=== PATIENT | female | born 1990 | race Caucasian/White ===

== ENCOUNTER 2020-10-31 06:06 | Inpatient (IN) | payer BC ==
[2020-10-31] MEDS ORDERED: LIDOCAINE 0.5% (PF) 5 MG/ML (50 ML SDV) SQ PRN (06:20)
[2020-10-31] MEDS ORDERED: OXYTOCIN 10 UNIT/ML 1 ML VIAL IM PRN (06:20)
[2020-10-31] MEDS ORDERED: TERBUTALINE 1 MG/ML VIAL SQ PRN (06:20)
[2020-10-31] MEDS ORDERED: CARBOPROST TROMETHAMINE 250 MCG/ML 1 ML AMP IM PRN (06:20)
[2020-10-31] MEDS ORDERED: METHYLERGONOVINE 0.2 MG/ML 1 ML AMP IM PRN (06:20)
[2020-10-31] MEDS ORDERED: OXYTOCIN 30 UNITS/500 ML NS 30 UNIT in SALINE 1 500ML.BAG IV SCH ×2 (06:30→22:28)
[2020-10-31] MEDS: LACTATED RINGERS 1,000 ML IV SCH ×4 (06:54→19:56)
[2020-10-31 07:11] LABS: Basophils % (A) 0 %; Eosinophils # (A) 0.1 k/uL (0-0.7); Eosinophils % (A) 1 %; HCT 37.9 % (34.0-46.0); Lymphocytes % (A) 25 %; MCH 29.3 pg (25.0-35.0); MCHC 31.6 g/dL (31.0-37.0); MCV 92.7 fL (80.0-100.0); Mean Platelet Volume 7.9; Monocytes # (A) 0.4 k/uL (0-1.0); Monocytes % (A) 5 %; Neutrophils # (A) 5.4 k/uL (1.3-7.7); Neutrophils % (A) 67 %; Platelet Count 261 k/uL (150-450); RBC 4.08 m/uL (3.80-5.40); RDW 13.1 % (11.5-15.5)
[2020-10-31] MEDS ORDERED: BUTORPHANOL 1 MG/ML 1 ML VIAL IV PRN (08:33)
[2020-10-31] MEDS: PRENATAL VIT-IRON-FOLIC ACID 1 EACH CAP PO SCH (10:33)
[2020-10-31] MEDS ORDERED: ROPIVACAINE 5MG/ML 20ML VIAL ONE (13:27)
[2020-10-31] MEDS ORDERED: fentaNYL (PF) 50 MCG/ML 5 ML AMP ONE (13:27)
[2020-10-31] MEDS ORDERED: SODIUM CHLORIDE 0.9% 100 ML BAG ONE (13:27)
[2020-10-31] MEDS ORDERED: CITRIC ACID-SODIUM CITRATE 15 ML CUP PO ONE (20:38)
[2020-10-31] MEDS ORDERED: ONDANSETRON 4 MG/2 ML VIAL ONE (21:21)
[2020-10-31] MEDS ORDERED: MORPHINE SULFATE (PF) 0.3 MG/0.3 ML SYR ONE (21:21)
--- NOTE | 2020-10-31 22:17 | P.HPOB ---
History of Present Illness H&P Date: 10/31/20 Chief Complaint: IUP at 39 and 6/7 weeks This is a 30-year-old 1 para 0 at 39-6/7 weeks that presents to labor and delivery for elective induction of labor. Patient has noted irregular contractions throughout the last few weeks, she denies vaginal bleeding or loss of fluid prior to today's admission. Patient has been receiving routine care which has been essentially uncomplicated. Patient is known Rh- and did receive program with her gestational diabetes screen at 28 weeks 08/09/2020. Patient does note good movement. On blood work shows blood type of O-, rubella status immune,B surface engine negative, HIV negative, group beta strep was negative. Review of Systems Constitutional: Denies chills, Denies fatigue, Denies fever Ears, nose, mouth and throat: Denies headache Cardiovascular: Reports leg edema Respiratory: Denies dyspnea Gastrointestinal: Denies constipation, Denies diarrhea, Denies nausea, Denies vomiting Genitourinary: Reports Past Medical History Past Medical History: No Reported History History of Any Multi-Drug Resistant Organisms: None Reported Past Surgical History: No Surgical Hx Reported Past Anesthesia/Blood Transfusion Reactions: No Reported Reaction Past Psychological History: No Psychological Hx Reported Smoking Status: Never smoker Past Alcohol Use History: None Reported Past Drug Use History: None Reported - Past Family History Father Family Medical History: No Reported History Medications and Allergies Home Medications Medication Instructions Recorded Confirmed Type Pnv,Calcium 72/Iron/Folic Acid 1 each PO DAILY 10/31/20 10/31/20 History [ Plus Tablet] Allergies Allergy/AdvReac Type Severity Reaction Status Date / Time No Known Allergies Allergy Verified 10/31/20 06:19 Exam Osteopathic Statement: *. No significant issues noted on an osteopathic structural exam other than those noted in the History and Physical/Consult. 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 Results Result Diagrams: 10/31/20 06:30 Assessment and Plan (1) Term Current Visit: Yes Status: Acute Code(s): Z34.90 - ENCNTR FOR SUPRVSN OF NORMAL , UNSP, UNSP TRIMESTER SNOMED Code(s): 96364278 (2) Thick meconium stained amniotic fluid Current Visit: Yes Status: Acute Code(s): P96.83 - MECONIUM STAINING SNOMED Code(s): 944945696 Plan: This 30-year-old at 39 and 6 is admitted to labor and delivery for scheduled induction of labor. Patient is noted to have thick meconium-stained fluid. Pitocin induction of labor was begun this morning per hospital protocol. Options for analgesia during are discussed including epidural and Stadol. Patient will decide at the time. We will monitor heart tones closely, anesthesia/pediatrics is notified regarding meconium-stained fluid.
--- NOTE | 2020-10-31 22:17 | P.OP ---
Date of Procedure: 10/31/20 Preoperative Diagnosis: IUP at 39 and 6/7 weeks, arrest of first stage of labor, meconium-stained fluid Postoperative Diagnosis: Same, OT presentation Procedure(s) Performed: Primary low transverse section Anesthesia: epidural Surgeon: Claudia Gamino Commercial Underwriter #1: Yana Philippe Estimated Blood Loss (ml): 396 IV fluids (ml): 1,000 Urine output (ml): 200 Pathology: other (Placenta) Condition: stable Disposition: observation Indications for Procedure: This is a 30-year-old 1 para 0 at 39-6/7 weeks that presented to labor and delivery today for induction of labor. Patient had noted meconium-stained fluid upon rupture of membranes this morning. Patient was found to be 3 cm on rupture and has made very slow progress and is noted to be 5 cm currently at 1830. Patient was noted to be 5 cm since 14:30 this afternoon. Patient was given the option of proceeding forward versus proceeding with primary , she elected primary . Operative Findings: Normal uterus tubes and ovaries were appreciated, viable female infant delivered at 2147, weight of 7 lbs. 1 oz. and Apgars of 8 and 9 at one and 5 minutes respectively. Infant was noted in the occiput transverse presentation maternal left Description of Procedure: Patient was taken back to the operating suite where epidural anesthesia was found to be adequate by the anesthesia department. She was then prepped and draped in normal sterile fashion in the dorsal supine position. A Pfannenstiel skin incision was made the scalpel and carried through to the underlying layer of fascia. The fascia was then incised in the midline and the incision was extended laterally. The superior aspect of the fascial incision was then grasped barbra clamps, elevated and underlying rectus muscle was dissected off sharply. Attention was then turned the inferior aspect of the fascial incision which was grasped barbra clamps, elevated and underlying rectus muscles dissected off sharply. The rectus muscles were in the midline the peritoneum was identified and entered. The bladder blade was then inserted into the pelvis. The vesicouterine peritoneum was identified and the bladder flap was then created the bladder blade was then reinserted. Hysterotomy incision was made with scalpel and extended bluntly. The head was encountered in an occiput transverse presentation off to the maternal left. The infant was delivered in the usual fashion. The umbo cord was doubly clamped and cut and handed off to awaiting RN. A spontaneous cry was noted. The placenta was then delivered manually intact with three-vessel cord being noted. Cord blood was taken prior to delivery of the placenta. The uterus was exteriorized and cleared of all clots and debris. The uterine incision was closed with 0 Vicryl in a running locked fashion and imbricating suture was then performed. Hemostasis was appreciated. The pelvis was then copiously irrigated. The uter us was then returned to the abdomen the hysterotomy incision was inspected and found to be hemostatic. The gutters were cleared of all clots and debris. The peritoneum was then loosely reapproximated. The fascia was then closed with 0 Vicryl in a running fashion from one lateral edge the other. The subcutaneous tissue was closed with 3-0 Vicryl in a running fashion. The skin was then closed with 4-0 Vicryl in a subcuticular fashion. Steri-Strips and sterile dressings were applied. All counts were noted be correct 2. Patient tolerated delivery well and is resting comfortably.
[2020-10-31] MEDS ORDERED: diphenhydrAMINE 50 MG CAP PO PRN (22:28)
[2020-10-31] MEDS ORDERED: ZOLPIDEM 5 MG TAB PO PRN (22:28)
[2020-10-31] MEDS ORDERED: diphenhydrAMINE 50 MG/ML 1 ML VIAL IVP PRN ×2 (22:28)
[2020-10-31] MEDS ORDERED: METOCLOPRAMIDE 5 MG/ML 2 ML VIAL IVP PRN (22:28)
[2020-10-31] MEDS ORDERED: ONDANSETRON 4 MG/2 ML VIAL IVP PRN (22:28)
[2020-10-31] MEDS ORDERED: NALOXONE 0.4 MG/ML 1 ML VIAL IV PRN ×2 (22:28→22:44)
[2020-10-31] MEDS ORDERED: SIMETHICONE 80 MG CHEWABLE PO PRN (22:28)
[2020-10-31] MEDS ORDERED: MORPHINE SULFATE 2 MG/ML SYRINGE IVP PRN (22:44)
[2020-10-31] MEDS: ACETAMINOPHEN IV (For NPO) 1,000 MG in EMPTY BAG 1 BAG IVPB SCH (23:15)
[2020-11-01] MEDS ORDERED: Rhogam IMMUNE GLOBULIN 1,500 UNIT/1 ML IM ONE (04:33)
[2020-11-01] MEDS: IBUPROFEN IV 800 MG in SODIUM CHLORIDE 0.9% 250 ML IV SCH ×4 (05:37→21:17)
[2020-11-01 07:12] LABS: Basophils % (A) 0 %; Eosinophils # (A) 0.1 k/uL (0-0.7); Eosinophils % (A) 0 %; HCT 37.2 % (34.0-46.0); HGB 12.1 gm/dL (11.4-16.0); Lymphocytes # (A) 2.2 k/uL (1.0-4.8); Lymphocytes % (A) 16 %; MCH 29.9 pg (25.0-35.0); MCHC 32.5 g/dL (31.0-37.0); MCV 92.2 fL (80.0-100.0); Monocytes # (A) 0.7 k/uL (0-1.0); Monocytes % (A) 5 %; Neutrophils # (A) 10.5 k/uL (1.3-7.7); Neutrophils % (A) 78 %; Platelet Count 209 k/uL (150-450); RBC 4.04 m/uL (3.80-5.40); RDW 13.2 % (11.5-15.5); WBC 13.5 k/uL (3.8-10.6)
--- NOTE | 2020-11-01 08:39 | P.PN ---
Progress Note - Text Date: 11/01/2020 Time: 706 The patient is status post section Vital signs stable VAS: 0-10 Patient has no complaints of pain. The patient incurred some minimal itching yesterday, this itching is now subsiding. Pain meds to be managed by service.
--- NOTE | 2020-11-01 08:39 | P.PNOBGPC ---
Subjective - Subjective Principal diagnosis: POD 1 LTCS arrest of first stage of labor Interval history: Patient did well overnight. She is ambulating without difficulty, awaiting spontaneous void. She is tolerating clear liquids without nausea or vomiting. She is breast feeding with some difficulty. Patient reports: Reports appetite normal, Reports voiding normally, Reports pain well controlled, Reports ambulating normally : doing well, nursing well Objective - Vital Signs Latest vital signs: Vital Signs Temp Pulse Resp BP Pulse Ox 11/01/20 07:00 16 100 11/01/20 05:00 16 98 11/01/20 04:00 98.4 F 65 16 109/65 98 11/01/20 03:44 97 11/01/20 03:00 16 11/01/20 01:44 16 11/01/20 00:30 98.4 F 68 16 113/56 97 11/01/20 00:00 98.4 F 71 16 110/57 96 10/31/20 23:44 16 96 10/31/20 23:30 99.3 F 74 16 106/61 96 10/31/20 23:15 99.3 F 64 16 109/73 97 10/31/20 23:00 76 16 116/63 97 10/31/20 22:45 78 16 113/80 96 10/31/20 22:44 98.4 F 72 16 113/80 96 10/31/20 22:30 98.4 F 67 16 110/61 98 Intake and Output 10/31/20 11/01/20 11/01/20 22:59 06:59 14:59 Output Total 4500 Balance -4500 Output: Urine 4500 Uretheral (Hernadez) 500 Other: Voiding Method Indwelling Catheter Indwelling Catheter # Voids 4 - Exam Extremities: Present: edema Abdomen: Present: normal appearance, soft Incision: Present: normal, dry Uterus: Present: normal, firm - Labs Labs: Abnormal Lab Results - Last 24 Hours (Table) 11/01/20 Range/Units 06:50 WBC 13.5 H (3.8-10.6) k/uL Neutrophils # 10.5 H (1.3-7.7) k/uL Assessment and Plan (1) Term Current Visit: Yes Status: Acute Code(s): Z34.90 - ENCNTR FOR SUPRVSN OF NORMAL , UNSP, UNSP TRIMESTER SNOMED Code(s): 30472877 (2) Thick meconium stained amniotic fluid Current Visit: Yes Status: Acute Code(s): P96.83 - MECONIUM STAINING SNOMED Code(s): 881056643 (3) Arrest of descent, delivered, current hospitalization Current Visit: Yes Status: Acute Code(s): O62.1 - SECONDARY UTERINE INERTIA SNOMED Code(s): 36484155 (4) Arrest of dilation, delivered, current hospitalization Current Visit: Yes Status: Acute Code(s): O62.1 - SECONDARY UTERINE INERTIA SNOMED Code(s): 55133518 (5) S/P section Current Visit: Yes Status: Acute Code(s): Z98.891 - HISTORY OF UTERINE SCAR FROM PREVIOUS SURGERY SNOMED Code(s): 692627520 Plan: Patient is doing well postoperatively. Awaiting spontaneous void, we'll advance diet to regular. Encouraged ambulation. Continue routine postoperative care.
[2020-11-01] MEDS: ACETAMINOPHEN TAB 500 MG TAB PO SCH ×3 (09:10→16:29)
[2020-11-01] MEDS: LACTATED RINGERS 1,000 ML IV SCH ×3 (09:10→18:26)
[2020-11-01] MEDS: ACETAMINOPHEN IV (For NPO) 1,000 MG in EMPTY BAG 1 BAG IVPB SCH (09:11)
[2020-11-01] MEDS: IBUPROFEN 600 MG TAB PO SCH ×4 (09:11→20:15)
[2020-11-01] MEDS: SENNOSIDES-DOCUSATE SODIUM 1 EACH TAB PO SCH ×2 (09:12→20:14)
[2020-11-01] MEDS: PRENATAL VIT-IRON-FOLIC ACID 1 EACH CAP PO SCH (09:13)
[2020-11-01] MEDS: diphenhydrAMINE 25 MG CAP PO PRN ×2 (10:42→16:29)
[2020-11-02] MEDS: ACETAMINOPHEN TAB 500 MG TAB PO SCH ×2 (00:23→06:03)
[2020-11-02] MEDS: IBUPROFEN 600 MG TAB PO SCH ×2 (03:27→10:03)
--- NOTE | 2020-11-02 09:01 | P.DS ---
Providers Date of admission: 10/31/20 06:06 Expected date of discharge: 11/02/20 Attending physician: Claudia Gamino Primary care physician: Stated None - Discharge Diagnosis(es) (1) Term Current Visit: Yes Status: Acute (2) Thick meconium stained amniotic fluid Current Visit: Yes Status: Acute (3) Arrest of descent, delivered, current hospitalization Current Visit: Yes Status: Acute (4) Arrest of dilation, delivered, current hospitalization Current Visit: Yes Status: Acute (5) S/P section Current Visit: Yes Status: Acute Hospital Course: This is a 30-year-old 1 para 0 that presented at 39-6/7 weeks for induction of labor. Patient was admitted to labor and delivery and rupture of membranes revealed meconium-stained fluid. Patient made very minimal progress throughout the day only progressing 2 cm throughout 12 hours. Patient was counseled on continuation of labor versus primary for arrest of descent and dilation. Patient elected primary . Patient underwent primary low transverse section without difficulty. Patient delivered a viable female infant at 2147 on 10/31, weight of 7 lbs. 1 oz. with Apgars of 8 and 9 at one and 5 minutes respectively. Infant was noted to be in the occiput transverse presentation to the maternal left. No descent was noted during the labor process. For complete details on the please see the operative report. Patient's postoperative course has been uneventful. On this postoperative day #2 she is a billing and voiding without difficulty. She is tolerating a regular diet without nausea or vomiting. She states her pain is well-controlled with oral ibuprofen/Tylenol. She does desire discharge home. Patient Condition at Discharge: Good Plan - Discharge Summary New Discharge Prescriptions: No Action Pnv,Calcium 72/Iron/Folic Acid [ Plus Tablet] 1 each PO DAILY Discharge Medication List Pnv,Calcium 72/Iron/Folic Acid [ Plus Tablet] 1 each PO DAILY 10/31/20 [History] Follow up Appointment(s)/Referral(s): Claudia Gamino DO [Doctor of Osteopathic Medicine] - 2 Weeks Patient Instructions/Handouts: (GEN), (DC) Discharge Disposition: HOME SELF-CARE
[2020-11-02 09:02] VITALS: BP 102/66; PULSE 73; RESP 16; TEMP 97.9
[2020-11-02] MEDS: SENNOSIDES-DOCUSATE SODIUM 1 EACH TAB PO SCH (10:02)
[2020-11-02] MEDS: PRENATAL VIT-IRON-FOLIC ACID 1 EACH CAP PO SCH (10:03)
== END 2020-11-02 11:23 | disposition home or self-care (01) | DRG 788 ==
LOC: 4FBP 06:06
PROVIDERS: ADMIT Obstetrics & Gynecology Obstetrics; ATTEND Obstetrics & Gynecology Obstetrics
PROC: 10D00Z1 Extraction of Products of Conception, Low, Open Approach (ICD-10-PCS; principal; 2020-10-31 21:17)
DX: O62.0 Primary inadequate contractions (principal); O32.2XX0 Maternal care for transverse and oblique lie, not applicable or unspecified; O62.1 Secondary uterine inertia; O77.0 Labor and delivery complicated by meconium in amniotic fluid; Z37.0 Single live birth; Z3A.39 39 weeks gestation of pregnancy; Z86.32 Personal history of gestational diabetes
CPT/HCPCS: 85025; 85461; 86850; 86900; 86901; 88307

== ENCOUNTER → 2021-09-25 | Outpatient (CLI) | payer BC ==
--- NOTE | 2021-09-25 15:20 | US ---
EXAMINATION TYPE: Transabdominal DATE OF EXAM: 09/25/2021 3:10 PM COMPARISON: NONE CLINICAL HISTORY: Z36.87 uncertain LMP. Uncertain LMP. EXAM PERFORMED: Transabdominal (TA) EXAM MEASUREMENTS: GESTATIONAL AGE / DATING Physician Established: Not yet established Dates by LMP: (8 weeks/2 days) EDC: 05/05/2022 Dates by First Scan: No previous this is first scan Dates by Current Scan for: (6 weeks/6 days) EDC: 05/15/2022 MATERNAL ANATOMY Uterus: 8.1 x 5.6 x 4.5 cm Right Ovary: 3.1 x 1.8 x 1.8 cm Left Ovary: 3.0 x 1.9 x1.3 cm Post CDS / Adnexa: no free fluid Presence of free fluid: no Presence of corpus luteal cyst: right ovary = 1.3 x 1.2 x 1.3 cm Presence of subchorionic bleed: Right fundal uterus= 1.6 x 1.4 x 0.9 cm GESTATION / SURVEY CRL: 0.8 cm (6 weeks/6 days) MSD: seen, not measured Yolk Sac (normal less than 6mm): 2.2 mm Heart Rate: 127 bpm Rhythm: Normal IUP: Viable IUP Date of LMP: 07/29/2021, Beta HcG (if available): Not available at this time IMPRESSION: Single viable intrauterine . Subchorionic hemorrhage as noted above.
== END | disposition home or self-care (01) ==
LOC: RADUSWWP 14:46
PROVIDERS: ATTEND Obstetrics & Gynecology Obstetrics
DX: Z36.87 Encounter for antenatal screening for uncertain dates (principal)
CPT/HCPCS: 76801

== ENCOUNTER → 2022-02-20 | Outpatient (CLI) | payer BC ==
[2022-02-20 22:53] LABS: HCT 34.8 % (37.2-46.3); HGB 11.2 g/dL (12.0-15.0); MCH 30.8 pg (27.0-32.0); MCHC 32.2 g/dL (32.0-37.0); MCV 95.6 fL (80.0-97.0); Mean Platelet Volume 10.4 fL (9.5-12.2); NRBC Per 100 WBC 0 /100 WBCS (0.0-0.0); Platelet Count 241 X 10*3/uL (140-440); RBC 3.64 X 10*6/uL (4.10-5.20); RDW 12.1 % (11.5-14.5); WBC 6.08 X 10*3/uL (4.50-10.00)
== END | disposition home or self-care (01) ==
LOC: LABWHC1 15:18
PROVIDERS: ATTEND Obstetrics & Gynecology Obstetrics
DX: Z36.9 Encounter for antenatal screening, unspecified (principal)
CPT/HCPCS: 36415; 82950; 85027; 86850

== ENCOUNTER 2022-05-16 13:36 | Inpatient (IN) | payer BC, OTHER ==
[2022-05-16] MEDS ORDERED: LIDOCAINE 0.5% (PF) 5 MG/ML (50 ML SDV) SQ PRN (13:40)
[2022-05-16] MEDS ORDERED: TERBUTALINE 1 MG/ML VIAL SQ PRN (13:40)
[2022-05-16] MEDS: LACTATED RINGERS 1,000 ML IV SCH ×3 (14:03→19:38)
[2022-05-16 14:04] LABS: Basophils % (A) 0 %; Eosinophils # (A) 0.1 k/uL (0-0.7); Eosinophils % (A) 1 %; HCT 38.3 % (34.0-46.0); Lymphocytes # (A) 1.9 k/uL (1.0-4.8); Lymphocytes % (A) 17 %; MCH 30.8 pg (25.0-35.0); MCHC 33.9 g/dL (31.0-37.0); MCV 90.8 fL (80.0-100.0); Mean Platelet Volume 8.5; Monocytes # (A) 0.6 k/uL (0-1.0); Monocytes % (A) 5 %; Neutrophils # (A) 8.4 k/uL (1.3-7.7); Neutrophils % (A) 75 %; Platelet Count 267 k/uL (150-450); RBC 4.21 m/uL (3.80-5.40); RDW 12.5 % (11.5-15.5); WBC 11.1 k/uL (3.8-10.6)
[2022-05-16 14:07] VITALS: RESP 16
[2022-05-16] MEDS ORDERED: OXYTOCIN 30 UNITS/500 ML NS 30 UNIT in SALINE 1 500ML.BAG IV SCH ×2 (15:15→21:00)
[2022-05-16] MEDS ORDERED: CITRIC ACID-SODIUM CITRATE 15 ML CUP PO ONE (19:27)
[2022-05-16] MEDS ORDERED: ONDANSETRON 4 MG/2 ML VIAL ONE (19:56)
[2022-05-16] MEDS ORDERED: ePHEDrine 50 MG/ML 1 ML VIAL ONE (19:56)
[2022-05-16] MEDS ORDERED: OXYTOCIN 30 UNITS/500 ML NS BAG IV ONE (19:56)
[2022-05-16] MEDS ORDERED: fentaNYL (PF) 50 MCG/ML 2 ML AMP ONE (19:56)
--- NOTE | 2022-05-16 20:48 | P.OP ---
Date of Procedure: 05/16/22 Preoperative Diagnosis: IUP at 40-1/7 weeks, arrest of first stage of labor, history of 1 failed trial of labor after Postoperative Diagnosis: Same Procedure(s) Performed: Repeat section Anesthesia: epidural Surgeon: Claudia Gamino Silo Erector #1: Shelly Garcia Estimated Blood Loss (ml): 418 IV fluids (ml): 1,000 Urine output (ml): 300 Pathology: other (Placenta) Condition: stable Disposition: observation Indications for Procedure: 31-year-old at 40 1/7 weeks that presented to labor and delivery last evening and this morning with complaints of regular painful contractions. Patient has a history of 1 secondary to arrest of first stage of labor. Patient withstood trial of labor after . Patient noted contractions since Thursday this week. Patient noted the contractions to be irregular and then getting closer together last evening to 6 minutes. Patient made no cervical change after monitoring. Patient this morning continued to have contractions and was uncomfortable. Patient presented was noted to be 4 cm. Amniotomy was performed. Meconium-stained fluid was appreciated. Patient made minimal twisting frame changer the next 1-2 hours therefore Pitocin augmentation of labor was begun. Infant was noted to be high in the pelvis and no descent was appreciated during admission. Patient had a similar experience with her last delivery. Discussion was had with the patient and her family regarding arrest of first stage of labor and need for repeat section. After discussion patient consented to repeat section. Operative Findings: Normal uterus tubes and ovaries were appreciated. Viable female infant delivered at 2016, weight of 7 lbs. 5 oz., Apgars of 9 and 9 at one and 5 minutes respectively. Description of Procedure: Patient was taken back to the operating suite where epidural anesthesia was found be adequate. She was prepped and draped in the normal sterile fashion in the dorsal supine position. A Hernadez catheter had been placed under sterile technique prior to this. A Pfannenstiel skin incision was made the scalpel. The prior incision was noted to be thickened therefore it was excised sharply. The incision was then carried through the underlying layer of fascia. The fascia was then incised in the midline and extended laterally. The superior aspect of the fascial incision was then grasped barbra clamps, elevated and underlying rectus muscles dissected off sharply. The inferior aspect of the fascial incision was then grasped barbra clamps, elevated and underlying rectus muscles dissected off sharply. The rectus muscles were in the midline the peritoneum was identified and entered. This incision was then extended superiorly and inferiorly with good visualization the bladder. The bladder blade was then inserted into the pelvis. The vesicouterine peritoneum was identified and a bladder flap was created using sharp and blunt dissection. Hysterotomy incision was made with the scalpel meconium-stained fluid was appreciated. The infant was noted in vertex presentation and delivered in the usual fashion a double nuchal cord was appreciated. The umbilical cord was doubly clamped and cut. The was handed off to waiting RN. A spontaneous cry at was noted. The placenta was delivered manually and the uterus was exteriorized and cleared of all clots and debris. Uterine incision was closed with 0 Vicryl in a running locked fashion a second imbricating suture was performed. Hemostasis was noted. The pelvis was then copiously irrigated. The uterus was returned to the abdomen. The gutters were cleared of all clots and debris. The hysterotomy incision was inspected hemostasis was appreciated. The peritoneum was then loosely reapproximated. The rectus muscles were inspected and any points of bleeding were made hemostatic with the Bovie. The fascia was then closed with 0 Vicryl in a running fashion from one lateral edge the midline and the other lateral edge the midline. The subcutaneous tissue was irrigated found to be hemostatic and closed with 3-0 Vicryl in a running fashion. The sk in was then closed with 4-0 Vicryl in a subarticular fashion. Steri-Strips and sterile dressings were applied. All counts were noted be correct 2 at the end of the delivery.
--- NOTE | 2022-05-16 20:53 | P.HPOB ---
History of Present Illness H&P Date: 05/16/22 Chief Complaint: IUP at 40 1/7, history of 1, contractions This is a 31-year-old 2 para 1001 at 40 1/7 weeks that presents to labor and delivery complaints of painful contractions. Patient was seen overnight and noted to be 3 cm. Patient was bhargav through the night. Patient denied vaginal bleeding or loss of fluid. Patient has noted contractions irregular in nature since Thursday morning. Patient desires trial of labor after . Patient receiving routine care which has been essentially uncomplicated. On bloodwork this patient is a blood type of O-, rubella status immune, B surface antigen negative, HIV negative, RPR nonreactive, group beta strep cultures negative. Review of Systems Constitutional: Denies chills, Denies fatigue, Denies fever Ears, nose, mouth and throat: Denies headache Cardiovascular: Reports leg edema Respiratory: Denies dyspnea Gastrointestinal: Denies constipation, Denies diarrhea, Denies nausea, Denies vomiting Genitourinary: Reports Past Medical History Past Medical History: No Reported History History of Any Multi-Drug Resistant Organisms: None Reported Past Surgical History: Section Additional Past Surgical History / Comment(s): 10/2020 Past Anesthesia/Blood Transfusion Reactions: No Reported Reaction Past Psychological History: No Psychological Hx Reported Smoking Status: Never smoker Past Alcohol Use History: None Reported Past Drug Use History: None Reported - Past Family History Father Family Medical History: No Reported History Medications and Allergies Home Medications Medication Instructions Recorded Confirmed Type Vit No.180/Iron/Folic 1 each PO DAILY 10/31/20 05/16/22 History [ Plus Tablet] Allergies Allergy/AdvReac Type Severity Reaction Status Date / Time No Known Allergies Allergy Verified 05/16/22 13:39 Exam Osteopathic Statement: *. No significant issues noted on an osteopathic structural exam other than those noted in the History and Physical/Consult. 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 Breathing is nonlabored, heart has a regular rate and rhythm, abdomen is gravid, on cervical exam she is 4/80/-2 station amniotomy is performed and meconium-stained fluid was appreciated. heart tones returned be category 1 and she is bhargav every 4-5 minutes. Results Result Diagrams: 05/16/22 13:45 Abnormal Lab Results - Last 24 Hours (Table) 05/16/22 Range/Units 13:45 WBC 11.1 H (3.8-10.6) k/uL Neutrophils # 8.4 H (1.3-7.7) k/uL Assessment and Plan (1) Thin meconium stained amniotic fluid Current Visit: Yes Status: Acute Code(s): P96.83 - MECONIUM STAINING SNOMED Code(s): 880572166 (2) H/O section Current Visit: Yes Status: Acute Code(s): Z98.891 - HISTORY OF UTERINE SCAR FROM PREVIOUS SURGERY SNOMED Code(s): 134419917 (3) Arrest of descent, delivered, current hospitalization Current Visit: No Status: Acute Code(s): O62.1 - SECONDARY UTERINE INERTIA SNOMED Code(s): 86223754 (4) Arrest of dilation, delivered, current hospitalization Current Visit: No Status: Acute Code(s): O62.1 - SECONDARY UTERINE INERTIA SNOMED Code(s): 28528259 (5) Term Current Visit: No Status: Acute Code(s): Z34.90 - ENCNTR FOR SUPRVSN OF NORMAL , UNSP, UNSP TRIMESTER SNOMED Code(s): 54857001 Plan: 31-year-old at 40 and one sevenths weeks that presents in labor. Patient desires trial of labor after . Patient is admitted to labor and delivery amniotomy is performed and thin meconium-stained fluid is appreciated. Patient is counseled on possible need for Pitocin augmentation of labor if contractions do not get closer together. Patient states understanding and is agreeable. Patient does desire epidural when uncomfortable. Anesthesia will be notified. We'll continue close observation
[2022-05-16] MEDS ORDERED: HYDROmorphone 1 MG/ML 1 ML SYRINGE IVP PRN (20:54)
[2022-05-16] MEDS ORDERED: ZOLPIDEM 5 MG TAB PO PRN (21:00)
[2022-05-16] MEDS ORDERED: diphenhydrAMINE 25 MG CAP PO PRN (21:00)
[2022-05-16] MEDS ORDERED: diphenhydrAMINE 50 MG CAP PO PRN (21:00)
[2022-05-16] MEDS ORDERED: SIMETHICONE 80 MG CHEWABLE PO PRN (21:00)
[2022-05-16] MEDS ORDERED: NALOXONE 0.4 MG/ML 1 ML VIAL IV PRN (21:00)
[2022-05-16] MEDS ORDERED: diphenhydrAMINE 50 MG/ML 1 ML VIAL IVP PRN ×2 (21:00)
[2022-05-16] MEDS ORDERED: ONDANSETRON 4 MG/2 ML VIAL IVP PRN (21:00)
[2022-05-16] MEDS ORDERED: METOCLOPRAMIDE 5 MG/ML 2 ML VIAL IVP PRN (21:00)
[2022-05-16] MEDS: ACETAMINOPHEN IV (For NPO) 1,000 MG in EMPTY BAG 1 BAG IVPB SCH (21:08)
[2022-05-16] MEDS: SENNOSIDES-DOCUSATE SODIUM 1 EACH TAB PO SCH (22:45)
[2022-05-16] MEDS: ACETAMINOPHEN TAB 500 MG TAB PO SCH (23:38)
[2022-05-17] MEDS: LACTATED RINGERS 1,000 ML IV SCH ×3 (00:37→21:32)
[2022-05-17] MEDS: IBUPROFEN IV 800 MG in SODIUM CHLORIDE 0.9% 250 ML IV SCH ×4 (00:38→21:33)
[2022-05-17] MEDS: IBUPROFEN 600 MG TAB PO SCH ×3 (02:10→21:33)
--- NOTE | 2022-05-17 13:51 | P.PNOBGPC ---
Subjective - Subjective Principal diagnosis: Full term section, failed TOLAC Interval history: Patient reports feeling well this morning. She is ambulating, urinating without difficulty, passing flatus, and tolerating PO without nausea or vomiting. Lochia is moderate. Viable female at the bedside, doing well. Patient is . Patient reports: Reports appetite normal, Reports voiding normally, Reports pain well controlled, Reports ambulating normally [place]: doing well, nursing well Objective - Vital Signs Latest vital signs: Vital Signs Temp Pulse Resp BP Pulse Ox 05/17/22 00:00 97.5 F L 74 16 110/72 96 05/16/22 22:47 97 16 107/62 97 05/16/22 22:17 75 16 109/57 97 05/16/22 21:47 96.2 F L 79 16 98/61 100 05/16/22 21:32 85 16 137/72 100 05/16/22 21:17 82 16 124/58 97 05/16/22 21:02 84 16 125/58 96 05/16/22 20:47 97.2 F L 98 16 124/75 95 05/16/22 14:03 95.9 F L 90 16 117/71 99 Intake and Output 05/16/22 05/17/22 05/17/22 22:59 06:59 14:59 Intake Total 1000 Output Total 1643 200 Balance -643 -200 Intake: IV 1000 Output: Urine 1000 200 Output, Quantitative 643 Blood Loss Other: Voiding Method Indwelling Catheter Indwelling Catheter # Voids 400 - Exam Abdomen: Present: normal appearance, soft Incision: Present: normal, dry, intact Uterus: Present: normal, firm - Labs Labs: Abnormal Lab Results - Last 24 Hours (Table) 05/16/22 Range/Units 13:45 WBC 11.1 H (3.8-10.6) k/uL Neutrophils # 8.4 H (1.3-7.7) k/uL Assessment and Plan Assessment: 31 y/o POD #1 s/p repeat LTCS 2/2 failed TOLAC 1. Meeting postoperative milestones appropriately. Encouraged ambulation. Incision clean/dry/intact. 2. Rh negative - will need Rhogam 3. Viable female doing well at the bedside Dispo: Anticipate discharge home tomorrow. Continue current management.
[2022-05-17] MEDS: ACETAMINOPHEN TAB 500 MG TAB PO SCH ×2 (19:11→21:31)
[2022-05-17 19:27] LABS: Basophils % (A) 0 %; Eosinophils % (A) 0 %; HCT 38.3 % (34.0-46.0); HGB 12.7 gm/dL (11.4-16.0); Lymphocytes # (A) 1.6 k/uL (1.0-4.8); Lymphocytes % (A) 11 %; MCHC 33.1 g/dL (31.0-37.0); MCV 93.6 fL (80.0-100.0); Mean Platelet Volume 10.8; Monocytes # (A) 0.8 k/uL (0-1.0); Monocytes % (A) 5 %; Neutrophils # (A) 11.8 k/uL (1.3-7.7); Neutrophils % (A) 82 %; Platelet Count 242 k/uL (150-450); RBC 4.09 m/uL (3.80-5.40); RDW 12.8 % (11.5-15.5); WBC 14.4 k/uL (3.8-10.6)
[2022-05-17] MEDS: ACETAMINOPHEN IV (For NPO) 1,000 MG in EMPTY BAG 1 BAG IVPB SCH (21:32)
[2022-05-17] MEDS: PRENATAL VIT-IRON-FOLIC ACID 1 EACH TABLET PO SCH (21:33)
[2022-05-17] MEDS: SENNOSIDES-DOCUSATE SODIUM 1 EACH TAB PO SCH (21:33)
[2022-05-18] MEDS: ACETAMINOPHEN TAB 500 MG TAB PO SCH ×2 (00:55→08:31)
[2022-05-18] MEDS: SENNOSIDES-DOCUSATE SODIUM 1 EACH TAB PO SCH ×2 (00:55→08:31)
[2022-05-18] MEDS: IBUPROFEN IV 800 MG in SODIUM CHLORIDE 0.9% 250 ML IV SCH ×3 (00:56→13:17)
[2022-05-18] MEDS ORDERED: Rhogam IMMUNE GLOBULIN 1,500 UNIT/1 ML IM ONE (02:07)
[2022-05-18] MEDS: IBUPROFEN 600 MG TAB PO SCH ×2 (02:19→13:16)
--- NOTE | 2022-05-18 08:17 | P.PN ---
Progress Note - Text 05/17/22 649am D-year-old female status post with spinal Duramorph. Patient seen and evaluated for postop pain control, patient has a VAS of 1 with no complaints of nausea vomiting. Doing well
[2022-05-18] MEDS ORDERED: ROPIVACAINE 100 MG, fentaNYL (PF). 200 MCG in SODIUM CHLORIDE 0.9% 76 ML EPIDURAL ONE (08:24)
[2022-05-18] MEDS: PRENATAL VIT-IRON-FOLIC ACID 1 EACH TABLET PO SCH (08:31)
[2022-05-18] MEDS: LACTATED RINGERS 1,000 ML IV SCH ×2 (08:46→13:17)
[2022-05-18 09:05] VITALS: BP 113/74; PULSE 82; TEMP 97.8
--- NOTE | 2022-05-18 11:17 | P.PNOBGPC ---
Subjective - Subjective Principal diagnosis: Full term Interval history: The patient is doing well this morning and had no acute events overnight. She has no complaints this morning. She reports minimal lochia, passing flatus, has had a bowel movement, is voiding without difficulty, ambulating, and eating/drinking without nausea or vomiting. She is her without difficulty. She denies chest pain, shortness of breathing, fevers, or chills overnight. She denies pain or swelling in the legs. Patient reports: Reports appetite normal, Reports voiding normally, Reports pain well controlled, Reports ambulating normally [place]: doing well, nursing well Objective - Vital Signs Latest vital signs: Vital Signs Temp Pulse Resp BP Pulse Ox 05/18/22 09:04 97.8 F 82 16 113/74 99 05/18/22 00:00 98.2 F 69 16 108/72 96 05/17/22 20:00 98.7 F 78 16 116/78 96 Intake and Output 05/17/22 05/18/22 05/18/22 23:59 06:59 14:59 Other: # Voids 2 - Exam Extremities: Present: normal Abdomen: Present: normal appearance, soft Incision: Present: normal, dry Uterus: Present: normal, firm - Labs Labs: Abnormal Lab Results - Last 24 Hours (Table) 05/17/22 Range/Units 09:23 WBC 14.4 H (3.8-10.6) k/uL Neutrophils # 11.8 H (1.3-7.7) k/uL Assessment and Plan Assessment: 31 y/o POD #2 s/p repeat LTCS 2/2 failed TOLAC 1. Meeting postoperative milestones appropriately. Encouraged ambulation. Incision clean/dry/intact. 2. Rh negative s/p Rhogam 3. Viable female infant doing well at the [facility]. Had phototherapy overnight and likely will be discharged later this afternoon. Dispo: Discharge to home. Follow up with Dr. Gamino in 2 weeks for incision check.
== END 2022-05-18 13:20 | disposition home or self-care (01) | DRG 788 ==
LOC: 4FBP 13:36
PROVIDERS: ADMIT Obstetrics & Gynecology Obstetrics; ATTEND Obstetrics & Gynecology Obstetrics
PROC: 4A0HXCZ Measurement of Products of Conception, Cardiac Rate, External Approach (ICD-10-PCS; 2022-05-16)
PROC: 10907ZC Drainage of Amniotic Fluid, Therapeutic from Products of Conception, Via Natural or Artificial Opening (ICD-10-PCS; 2022-05-16)
PROC: 3E033VJ Introduction of Other Hormone into Peripheral Vein, Percutaneous Approach (ICD-10-PCS; 2022-05-16)
PROC: 3E0234Z Introduction of Serum, Toxoid and Vaccine into Muscle, Percutaneous Approach (ICD-10-PCS; 2022-05-16)
PROC: 10D00Z1 Extraction of Products of Conception, Low, Open Approach (ICD-10-PCS; principal; 2022-05-16 20:31)
DX: O34.211 Maternal care for low transverse scar from previous cesarean delivery (principal); O26.893 Other specified pregnancy related conditions, third trimester; O32.4XX0 Maternal care for high head at term, not applicable or unspecified; O61.0 Failed medical induction of labor; O48.0 Post-term pregnancy; O62.0 Primary inadequate contractions; O66.41 Failed attempted vaginal birth after previous cesarean delivery; O77.0 Labor and delivery complicated by meconium in amniotic fluid; Z37.0 Single live birth; Z3A.40 40 weeks gestation of pregnancy; Z67.91 Unspecified blood type, Rh negative
CPT/HCPCS: 85025; 85461; 86850; 86900; 86901